=== PATIENT | female | born 1960 | race Two or more races ===

== ENCOUNTER 2023-05-15 10:58 | Emergency (ER) | payer MEDICAID, OTHER ==
[~2023-05-15] VITALS: Ht 152.4 cm; Wt 66.0 kg
[2023-05-15 11:15] VITALS: PULSE 75; RESP 22; O2SAT 95
[2023-05-15] MEDS ORDERED: ONDANSETRON ODT 4 MG TAB PO ONE (12:45)
[2023-05-15] MEDS ORDERED: HYDROmorphone HCL 2 MG/ML VL/or syr IM ONE (12:45)
[2023-05-15] MEDS ORDERED: CYCL-838 PO (13:03)
[2023-05-15] MEDS ORDERED: ACET-1304 PO (13:03)
[2023-05-15] MEDS ORDERED: NAPR-746 PO (13:03)
[2023-05-15] MEDS ORDERED: ONDANSETRON HCL 4 MG/2 ML VIAL IV ONE (13:15)
[2023-05-15] MEDS ORDERED: HYDROmorphone HCL 2 MG/ML VL/or syr IV ONE (13:15)
[2023-05-15] MEDS ORDERED: HYDR-4798 PO (14:40)
[2023-05-15 14:45] VITALS: BP 133/72; PULSE 77; RESP 15; O2SAT 98
== END 2023-05-15 15:10 | disposition home or self-care (01) ==
LOC: EDBD 10:58 → ER 10:58
DX: S82.002A Unspecified fracture of left patella, initial encounter for closed fracture (principal); Z88.0 Allergy status to penicillin; Z79.899 Other long term (current) drug therapy; W01.0XXA Fall on same level from slipping, tripping and stumbling without subsequent striking against object, initial encounter; Y93.89 Activity, other specified; Y92.89 Other specified places as the place of occurrence of the external cause; Y99.8 Other external cause status
CPT/HCPCS: 73562; 96374; 96375; 99284; J1170; J2405